=== PATIENT | female | born 1950 | race Caucasian/White ===

== ENCOUNTER 2020-07-28 14:36 | Emergency (ER) | payer OTHER ==
[~2020-07-28] VITALS: Ht 162.6 cm; Wt 90.9 kg
[2020-07-28 14:39] VITALS: BP 171/87
[2020-07-28 15:29] LABS: COVID AG,FIA SOURCE NASAL SWAB
== END 2020-07-28 15:20 | disposition home or self-care (01) ==
LOC: EMS 14:45
DX: Z11.59 Encounter for screening for other viral diseases (principal); Z20.828 Contact with and (suspected) exposure to other viral communicable diseases
CPT/HCPCS: 87426; 99283; C9803